=== PATIENT | male | born 1970 | race Caucasian/White ===

== ENCOUNTER → 2017-03-20 | Outpatient (CLI) | payer OTHER ==
[2017-03-20 09:53] LABS: MEAN CORPUSCULAR HGB CONC 34.5 g/dl (32.0-36.5); RED CELL DISTRIBUTION WIDTH 12.3 % (11.5-14.5); WHITE BLOOD COUNT 6.4 K/mm3 (4.0-10.0)
[2017-03-20 10:21] LABS: ALBUMIN 4.4 GM/DL (3.2-5.2); ALBUMIN/GLOBULIN RATIO 1.57 (1.00-1.93); ALKALINE PHOSPHATASE 110 U/L (45-117); ALT/SGPT 56 U/L (12-78); ANION GAP 7 MEQ/L (8-16); AST/SGOT 13 U/L (15-37); BILIRUBIN,TOTAL 0.5 MG/DL (0.2-1.0); BLOOD UREA NITROGEN 12 MG/DL (7-18); CALCIUM LEVEL 8.8 MG/DL (8.5-10.1); CARBON DIOXIDE LEVEL 29 MEQ/L (21-32); CHLORIDE LEVEL 105 MEQ/L (98-107); CHOLESTEROL LEVEL 219 MG/DL (<200); CREATININE FOR GFR 0.94 MG/DL (0.70-1.30); GLOMERULAR FILTRATION RATE > 60.0 (>60); GLUCOSE, FASTING 102 MG/DL (70-105); POTASSIUM SERUM 4.5 MEQ/L (3.5-5.1); SODIUM LEVEL 141 MEQ/L (136-145); TOTAL PROTEIN 7.2 GM/DL (6.4-8.2); TRIGLYCERIDES LEVEL 191 MG/DL (<150)
--- NOTE | 2017-03-20 19:04 | ECGEPIP ---
Stationary ECG Study [facility] Test Date: 2017-03-20 Pat Name: LISA ONEILL Department: Room: - Gender: M Associate Loan Officer: AYALA : 1970 Requested By: Aryan Donovan Order Number: [id number] Reading MD: Moni Justice Measurements Intervals [place] Rate: 60 P: 49 CA: 175 QRS: 22 QRSD: 101 T: 19 QT: 386 QTc: 386 Interpretive Statements SINUS RHYTHM NO CHANGE SINCE 07/17/14 Electronically Signed On 03-20-2017 19:04:20 EDT by Moni Justice
--- NOTE | 2017-03-20 19:28 | REP ---
Chest x-ray: Two views: History: Hypertension. Comparison chest x-ray: 07/17/2014. Findings: The lungs are symmetrically aerated and clear. Pleural angles are sharp. Heart size is normal. Pulmonary vasculature is not increased. There are degenerative changes with discogenic spurring along the right lateral margin of the thoracic spine as before. Impression: No active disease. Signed by Thony Morrow MD 03/21/2017 08:06 A
== END ==
LOC: M LAB 09:16
PROVIDERS: ATTEND Family Medicine
DX: R53.83 Other fatigue (principal); I10 Essential (primary) hypertension

== ENCOUNTER → 2017-06-01 | Outpatient (CLI) | payer OTHER | LOC: M LAB 09:09 | PROVIDERS: ATTEND Family Medicine | DX: I10 Essential (primary) hypertension (principal) ==

== ENCOUNTER → 2018-06-21 | Outpatient (CLI) | payer OTHER ==
[2018-06-21 09:29] LABS: HEMATOCRIT 44.1 % (42.0-52.0); HEMOGLOBIN 14.7 g/dl (13.5-17.5); MEAN CORPUSCULAR HEMOGLOBIN 29.3 pg (27.0-33.0); MEAN CORPUSCULAR HGB CONC 33.3 g/dl (32.0-36.5); MEAN CORPUSCULAR VOLUME 87.8 fl (80.0-96.0); PLATELET COUNT, AUTOMATED 257 10^3/uL (150-450); RED BLOOD COUNT 5.02 10^6/uL (4.30-6.10); RED CELL DISTRIBUTION WIDTH 12.2 % (11.5-14.5); WHITE BLOOD COUNT 6.1 10^3/uL (4.0-10.0)
[2018-06-21 09:54] LABS: ESTIMATED AVERAGE GLUCOSE 114 MG/DL (60-110); HEMOGLOBIN A1c 5.6 %
[2018-06-21 10:09] LABS: ALBUMIN 4.4 GM/DL (3.2-5.2); ALBUMIN/GLOBULIN RATIO 1.42 (1.00-1.93); ALKALINE PHOSPHATASE 113 U/L (45-117); ALT/SGPT 48 U/L (12-78); ANION GAP 7 MEQ/L (8-16); AST/SGOT 16 U/L (7-37); BILIRUBIN,TOTAL 0.9 MG/DL (0.2-1.0); BLOOD UREA NITROGEN 11 MG/DL (7-18); CALCIUM LEVEL 8.9 MG/DL (8.5-10.1); CARBON DIOXIDE LEVEL 27 MEQ/L (21-32); CHLORIDE LEVEL 107 MEQ/L (98-107); CHOLESTEROL LEVEL 213 MG/DL (<200); CHOLESTEROL RISK RATIO 3.672 (<5); GLOMERULAR FILTRATION RATE > 60.0 (>60); GLUCOSE, FASTING 97 MG/DL (70-100); HDL CHOLESTEROL 58 MG/DL (>40); NON-HDL-C 155 MG/DL; POTASSIUM SERUM 4.5 MEQ/L (3.5-5.1); PROSTATIC SPECIFIC AG MONITOR 2.28 NG/ML (< 4.0); SODIUM LEVEL 141 MEQ/L (136-145); TOTAL PROTEIN 7.5 GM/DL (6.4-8.2); TRIGLYCERIDES LEVEL 180 MG/DL (<150)
[2018-06-21 10:56] LABS: TOTAL 25(OH) VITAMIN D 26.7 NG/ML (30.0-100.0)
[2018-06-21 10:57] LABS: TESTOSTERONE 297 NG/DL (241-827)
== END ==
LOC: M LAB 08:42
DX: I10 Essential (primary) hypertension (principal); R53.83 Other fatigue; E03.9 Hypothyroidism, unspecified
CPT/HCPCS: 71046

== ENCOUNTER → 2018-11-01 | Outpatient (REF) | payer OTHER | LOC: M SFHCLERA 10:18 | PROVIDERS: ATTEND Nurse Practitioner Family | DX: J02.9 Acute pharyngitis, unspecified (principal) ==

== ENCOUNTER → 2019-07-07 | Outpatient (CLI) | payer BC ==
--- NOTE | 2019-07-08 12:07 | REP ---
Left wrist four views : There is no fracture or dislocation. Mineralization and joint spaces are normal. There are no calcifications or foreign bodies. Impression: Negative left wrist . Electronically Signed by Patrice Dutta MD 07/07/2019 11:22 A
== END ==
LOC: M LRY 10:43
PROVIDERS: ATTEND Nurse Practitioner Family
DX: M25.532 Pain in left wrist (principal)

== ENCOUNTER → 2020-06-18 | Outpatient (CLI) | payer BC ==
[~2020-06-18] MED LIST: D31000TA2 PO; METO1TAB87; MULT1TAB7 PO; PRAV40TA2
[2020-07-17 01:18] LABS: HEMATOCRIT 42.9 % (42.0-52.0); HEMOGLOBIN 14.5 g/dl (13.5-17.5); MEAN CORPUSCULAR HEMOGLOBIN 30.1 pg (27.0-33.0); MEAN CORPUSCULAR HGB CONC 33.8 g/dl (32.0-36.5); PLATELET COUNT, AUTOMATED 242 10^3/uL (150-450); RED BLOOD COUNT 4.82 10^6/uL (4.30-6.10)
--- NOTE | 2020-08-05 10:59 | ECGEPIP ---
[facility] Test Date: 2020-06-18 Pat Name: LISA ONEILL Department: Room: - Gender: Male Practice Assistant: NICKIE : 1970 Requested By: Aryan Donovan Order Number: [id number] Reading MD: Jared Kim Measurements Intervals [place] Rate: 66 P: 50 DE: 173 QRS: 27 QRSD: 106 T: 14 QT: 387 QTc: 407 Interpretive Statements NORMAL SINUS RHYTHM NORMAL EKG PRIOR TRACING N/A SEE SCANNED DOWNTIME REPORT
--- NOTE | 2020-08-06 10:48 | REP ---
CHEST X-RAY: TWO VIEWS HISTORY: Unknown. Report is delayed due to a malware attack on this facility. FINDINGS: The lungs are symmetrically aerated and clear. Heart is not enlarged. Pulmonary vasculature is not increased. There are degenerative changes in the thoracic spine. No acute bony abnormality. IMPRESSION: No active disease. MTDD
[2020-08-30 10:00] LABS: BLOOD UREA NITROGEN 11 MG/DL (7-18); CREATININE FOR GFR 1.04 MG/DL (0.70-1.30); GLOMERULAR FILTRATION RATE > 60.0 (>56); GLUCOSE, FASTING 94 MG/DL (70-100)
[2020-08-30 10:01] LABS: ALBUMIN 4.6 GM/DL (3.2-5.2); ALT/SGPT 54 IU/L (0-32); BILIRUBIN,TOTAL 0.5 MG/DL (0.2-1.0); CALCIUM LEVEL 9.8 MG/DL (8.5-10.1); CARBON DIOXIDE LEVEL 24 mmol/L (20-29); CHLORIDE LEVEL 104 MEQ/L (98-107); CHOLESTEROL LEVEL 233 MG/DL (<200); CHOLESTEROL RISK RATIO 3.883 (<5); HDL CHOLESTEROL 60 MG/DL (>40); LDL CHOLESTEROL 122.8 MG/DL (<100); NON-HDL-C 173 MG/DL; POTASSIUM SERUM 4.2 MEQ/L (3.5-5.1); SODIUM LEVEL 140 MEQ/L (136-145); TOTAL PROTEIN 7.8 GM/DL (6.4-8.2); TRIGLYCERIDES LEVEL 251 MG/DL (<150)
[2020-08-30 10:02] LABS: PROSTATIC SPECIFIC AG MONITOR 1.87 NG/ML (< 4.00); TOTAL 25(OH) VITAMIN D 40.6 NG/ML (30.0-100.0)
== END ==
LOC: M LAB 09:30
PROVIDERS: ATTEND Family Medicine
DX: I10 Essential (primary) hypertension (principal); R53.83 Other fatigue

== ENCOUNTER → 2020-06-19 | Emergency (ER) | payer BC ==
[~2020-06-19] MED LIST changes: +BOOSTRIX/ADACEL VACCINE (DIPHTH/PERTUSS/ACELL/TETANUS) 0.5ML SYR As Ordered ONE; +BOOSTRIX/ADACEL VACCINE (DIPHTH/PERTUSS/ACELL/TETANUS) 0.5ML SYR ONE; +CEPHALEXIN 500 MG CAP As Ordered ONE; +CEPHALEXIN 500 MG CAP ONE; +predniSONE 20 MG TAB As Ordered ONE; +predniSONE 20 MG TAB ONE
== END | disposition home or self-care (01) ==
LOC: M ED 10:12
DX: S60.361A Insect bite (nonvenomous) of right thumb, initial encounter (principal); W57.XXXA Bitten or stung by nonvenomous insect and other nonvenomous arthropods, initial encounter; R22.31 Localized swelling, mass and lump, right upper limb; I10 Essential (primary) hypertension; E78.5 Hyperlipidemia, unspecified; Z79.899 Other long term (current) drug therapy

== ENCOUNTER 2020-07-31 08:19 | Emergency (ER) | payer BC ==
[~2020-07-31] VITALS: Ht 198.1 cm; Wt 68.4 kg
[2020-07-31] MEDS ORDERED: PRAV40TA2 (08:35)
[2020-07-31] MEDS ORDERED: METO1TAB87 (08:35)
[2020-07-31] MEDS ORDERED: MULT1TAB7 PO (08:35)
[2020-07-31] MEDS ORDERED: D31000TA2 PO (08:35)
--- NOTE | 2020-07-31 09:05 | REPVR ---
PROCEDURE INFORMATION: Exam: XR Right Ankle Exam date and time: 07/31/2020 8:42 AM Age: 49 years old Clinical indication: Other: Fell from ladder; Additional info: Fell off ladder TECHNIQUE: Imaging protocol: XR Right ankle. Views: 3 or more views. COMPARISON: No relevant prior studies available. FINDINGS: Bones/joints: No acute bony injury or malalignment in the right ankle. Soft tissues: Mild soft tissue swelling. No radiopaque foreign body. IMPRESSION: No acute bony injury or malalignment in the right ankle. Electronically signed by: Norberto Luna On 07/31/2020 09:05:03 AM
[2020-07-31 09:20] VITALS: BP 156/81
== END 2020-07-31 09:21 | disposition home or self-care (01) ==
LOC: M ED 08:19
DX: S93.401A Sprain of unspecified ligament of right ankle, initial encounter (principal); W11.XXXA Fall on and from ladder, initial encounter; Y92.018 Other place in single-family (private) house as the place of occurrence of the external cause; I10 Essential (primary) hypertension; E78.5 Hyperlipidemia, unspecified; Z79.899 Other long term (current) drug therapy; Z87.891 Personal history of nicotine dependence

== ENCOUNTER → 2021-01-17 | Outpatient (CLI) | payer BC ==
[~2021-01-17] MED LIST changes: -BOOSTRIX/ADACEL VACCINE (DIPHTH/PERTUSS/ACELL/TETANUS) 0.5ML SYR As Ordered ONE; -BOOSTRIX/ADACEL VACCINE (DIPHTH/PERTUSS/ACELL/TETANUS) 0.5ML SYR ONE; -CEPHALEXIN 500 MG CAP As Ordered ONE; -CEPHALEXIN 500 MG CAP ONE; -predniSONE 20 MG TAB As Ordered ONE; -predniSONE 20 MG TAB ONE
[2021-01-17 09:59] LABS: HEMATOCRIT 45.6 % (42.0-52.0); MEAN CORPUSCULAR HEMOGLOBIN 28.9 pg (27.0-33.0); MEAN CORPUSCULAR HGB CONC 32.9 g/dl (32.0-36.5); MEAN CORPUSCULAR VOLUME 87.9 fl (80.0-96.0); PLATELET COUNT, AUTOMATED 231 10^3/uL (150-450); RED BLOOD COUNT 5.19 10^6/uL (4.30-6.10)
[2021-01-17 10:20] LABS: HEMOGLOBIN A1c 5.1 %
[2021-01-17 10:41] LABS: ALBUMIN 4.5 GM/DL (3.2-5.2); ALT/SGPT 41 U/L (12-78); BILIRUBIN,TOTAL 0.6 MG/DL (0.2-1.0); BLOOD UREA NITROGEN 16 MG/DL (7-18); CALCIUM LEVEL 9.6 MG/DL (8.5-10.1); CARBON DIOXIDE LEVEL 28 MEQ/L (21-32); CHLORIDE LEVEL 108 MEQ/L (98-107); CHOLESTEROL LEVEL 241 MG/DL (<200); CHOLESTEROL RISK RATIO 3.887 (<5); CREATININE FOR GFR 0.92 MG/DL (0.70-1.30); GLOMERULAR FILTRATION RATE > 60.0 (>56); GLUCOSE, FASTING 104 MG/DL (70-100); HDL CHOLESTEROL 62 MG/DL (>40); LDL CHOLESTEROL 151 MG/DL (<100); NON-HDL-C 179 MG/DL; POTASSIUM SERUM 4.4 MEQ/L (3.5-5.1); PROSTATIC SPECIFIC AG MONITOR 2.06 NG/ML (< 4.00); SODIUM LEVEL 140 MEQ/L (136-145); TESTOSTERONE 297 NG/DL (241-827); TOTAL PROTEIN 7.2 GM/DL (6.4-8.2); TRIGLYCERIDES LEVEL 140 MG/DL (<150)
== END ==
LOC: M LAB 09:09
PROVIDERS: ATTEND Family Medicine
DX: I10 Essential (primary) hypertension (principal); R53.83 Other fatigue

== ENCOUNTER → 2021-09-03 | Outpatient (CLI) | payer BC ==
[2021-09-03 11:11] LABS: HEMATOCRIT 43.3 % (42.0-52.0); HEMOGLOBIN 14.5 g/dl (13.5-17.5); MEAN CORPUSCULAR HEMOGLOBIN 29.3 pg (27.0-33.0); MEAN CORPUSCULAR HGB CONC 33.5 g/dl (32.0-36.5); MEAN CORPUSCULAR VOLUME 87.5 fl (80.0-96.0); PLATELET COUNT, AUTOMATED 248 10^3/uL (150-450); RED BLOOD COUNT 4.95 10^6/uL (4.30-6.10)
[2021-09-03 11:39] LABS: ALT/SGPT 52 U/L (12-78); BILIRUBIN,TOTAL 0.8 MG/DL (0.2-1.0); BLOOD UREA NITROGEN 9 MG/DL (7-18); CARBON DIOXIDE LEVEL 29 MEQ/L (21-32); CHLORIDE LEVEL 107 MEQ/L (98-107); CHOLESTEROL LEVEL 197 MG/DL (<200); CHOLESTEROL RISK RATIO 3.862 (<5); CREATININE FOR GFR 0.96 MG/DL (0.70-1.30); GLOMERULAR FILTRATION RATE > 60.0 (>56); GLUCOSE, FASTING 94 MG/DL (70-100); HDL CHOLESTEROL 51 MG/DL (>40); LDL CHOLESTEROL 109 MG/DL (<100); NON-HDL-C 146 MG/DL; POTASSIUM SERUM 4.6 MEQ/L (3.5-5.1); PROSTATIC SPECIFIC AG MONITOR 2.39 NG/ML (< 4.00); SODIUM LEVEL 142 MEQ/L (136-145); THYROXINE (T4) 6.2 UG/DL (4.5-12.0); TOTAL PROTEIN 7.1 GM/DL (6.4-8.2); TRIGLYCERIDES LEVEL 186 MG/DL (<150)
[2021-09-05 10:01] LABS: TESTOSTERONE 295 NG/DL (241-827); TOTAL T3 95.2 NG/DL (60.0-181.0)
== END ==
LOC: M LAB 09:10
PROVIDERS: ATTEND Family Medicine
DX: I10 Essential (primary) hypertension (principal); R53.83 Other fatigue

== ENCOUNTER → 2022-04-24 | Outpatient (CLI) | payer BC ==
[~2022-04-24] MED LIST changes: -D31000TA2 PO; +VITA100093 PO
[2022-04-24 11:54] LABS: HEMATOCRIT 44.1 % (42.0-52.0); HEMOGLOBIN 14.9 g/dl (13.5-17.5); MEAN CORPUSCULAR HEMOGLOBIN 29.9 pg (27.0-33.0); MEAN CORPUSCULAR HGB CONC 33.8 g/dl (32.0-36.5); MEAN CORPUSCULAR VOLUME 88.4 fl (80.0-96.0); PLATELET COUNT, AUTOMATED 226 10^3/uL (150-450); RED BLOOD COUNT 4.99 10^6/uL (4.30-6.10); WHITE BLOOD COUNT 5.9 10^3/uL (4.0-10.0)
[2022-04-24 12:43] LABS: ALBUMIN 4.4 GM/DL (3.2-5.2); ALT/SGPT 49 U/L (12-78); BILIRUBIN,TOTAL 0.9 MG/DL (0.2-1.0); BLOOD UREA NITROGEN 17 MG/DL (7-18); CALCIUM LEVEL 10.3 MG/DL (8.5-10.1); CARBON DIOXIDE LEVEL 26 MEQ/L (21-32); CHLORIDE LEVEL 108 MEQ/L (98-107); CHOLESTEROL LEVEL 218 MG/DL (<200); CHOLESTEROL RISK RATIO 3.892 (<5); CREATININE FOR GFR 0.99 MG/DL (0.70-1.30); GLOMERULAR FILTRATION RATE > 60.0 (>56); GLUCOSE, FASTING 98 MG/DL (70-100); HDL CHOLESTEROL 56 MG/DL (>40); LDL CHOLESTEROL 130 MG/DL (<100); NON-HDL-C 162 MG/DL; POTASSIUM SERUM 4.8 MEQ/L (3.5-5.1); PROSTATIC SPECIFIC AG MONITOR 2.65 NG/ML (< 4.00); SODIUM LEVEL 140 MEQ/L (136-145); TESTOSTERONE 271 NG/DL (241-827); TOTAL PROTEIN 7.4 GM/DL (6.4-8.2); TRIGLYCERIDES LEVEL 162 MG/DL (<150)
[2022-04-24 15:53] LABS: HEMOGLOBIN A1c 5.3 %
== END ==
LOC: M LAB 11:10
PROVIDERS: ATTEND Family Medicine
DX: I10 Essential (primary) hypertension (principal); R53.83 Other fatigue; E03.9 Hypothyroidism, unspecified

== ENCOUNTER → 2022-11-03 | Outpatient (CLI) | payer BC ==
[2022-11-03 09:14] LABS: HEMATOCRIT 45.3 % (42.0-52.0); MEAN CORPUSCULAR HEMOGLOBIN 28.7 pg (27.0-33.0); MEAN CORPUSCULAR HGB CONC 33.1 g/dl (32.0-36.5); MEAN CORPUSCULAR VOLUME 86.8 fl (80.0-96.0); PLATELET COUNT, AUTOMATED 234 10^3/uL (150-450); RED BLOOD COUNT 5.22 10^6/uL (4.30-6.10); WHITE BLOOD COUNT 6.5 10^3/uL (4.0-10.0)
[2022-11-03 09:43] LABS: ALBUMIN 4.2 G/DL (3.2-5.2); ALKALINE PHOSPHATASE 93 U/L (46-116); ALT/SGPT 37 U/L (7.0-40); AST/SGOT 16 U/L (<34); BILIRUBIN,TOTAL 0.8 MG/DL (0.3-1.2); BLOOD UREA NITROGEN 12 MG/DL (9-23); CARBON DIOXIDE LEVEL 28 MMOL/L (20-31); CHLORIDE LEVEL 103 MMOL/L (98-107); CHOLESTEROL LEVEL 195 MG/DL (<200); CHOLESTEROL RISK RATIO 3.19 (<5); CREATININE FOR GFR 0.93 MG/DL (0.70-1.30); GLOMERULAR FILTRATION RATE > 60.0 (>56); GLUCOSE, FASTING 96 MG/DL (60-100); HDL CHOLESTEROL 61.1 MG/DL (>40); LDL CHOLESTEROL 92.9 MG/DL (<100); NON-HDL-C 134 MG/DL; POTASSIUM SERUM 4.4 MMOL/L (3.5-5.1); PROSTATIC SPECIFIC AG MONITOR 2.14 NG/ML (< 4.00); SODIUM LEVEL 140 MMOL/L (136-145); TRIGLYCERIDES LEVEL 205 MG/DL (<150)
[2022-11-03 09:45] LABS: THYROID STIMULATING HORMONE 2.612 uIU/ML (0.55-4.78)
[2022-11-03 09:46] LABS: TESTOSTERONE 337 NG/DL (241-827); TOTAL 25(OH) VITAMIN D 42.1 NG/ML (20.0-100.0)
== END ==
LOC: M LAB 07:59
PROVIDERS: ATTEND Family Medicine
DX: I10 Essential (primary) hypertension (principal); R53.83 Other fatigue; E03.9 Hypothyroidism, unspecified

== ENCOUNTER → 2022-12-14 | Outpatient (CLI) | payer BC ==
[2022-12-14 09:46] LABS: HEMATOCRIT 45.4 % (42.0-52.0); HEMOGLOBIN 15.2 g/dl (13.5-17.5); MEAN CORPUSCULAR HEMOGLOBIN 29.1 pg (27.0-33.0); MEAN CORPUSCULAR HGB CONC 33.5 g/dl (32.0-36.5); PLATELET COUNT, AUTOMATED 235 10^3/uL (150-450); RED BLOOD COUNT 5.22 10^6/uL (4.30-6.10); WHITE BLOOD COUNT 7.2 10^3/uL (4.0-10.0)
[2022-12-14 09:57] LABS: INR 0.88; PROTHROMBIN TIME 12.1 SECONDS (12.5-14.5)
[2022-12-14 10:21] LABS: ALBUMIN 4.6 G/DL (3.2-5.2); ALKALINE PHOSPHATASE 105 U/L (46-116); ALT/SGPT 46 U/L (7.0-40); AST/SGOT 17 U/L (<34); BILIRUBIN,TOTAL 0.9 MG/DL (0.3-1.2); BLOOD UREA NITROGEN 12 MG/DL (9-23); CALCIUM LEVEL 9.7 MG/DL (8.5-10.1); CARBON DIOXIDE LEVEL 27 MMOL/L (20-31); CHLORIDE LEVEL 104 MMOL/L (98-107); CHOLESTEROL LEVEL 214 MG/DL (<200); CHOLESTEROL RISK RATIO 3.41 (<5); CREATININE FOR GFR 0.88 MG/DL (0.70-1.30); GLOMERULAR FILTRATION RATE > 60.0 (>56); GLUCOSE, FASTING 111 MG/DL (60-100); HDL CHOLESTEROL 62.6 MG/DL (>40); LDL CHOLESTEROL 118.8 MG/DL (<100); NON-HDL-C 151 MG/DL; POTASSIUM SERUM 4.8 MMOL/L (3.5-5.1); SODIUM LEVEL 139 MMOL/L (136-145); TOTAL PROTEIN 7.8 G/DL (5.7-8.2); TRIGLYCERIDES LEVEL 163 MG/DL (<150)
[2022-12-14 10:49] LABS: PROSTATIC SPECIFIC AG MONITOR 2.35 NG/ML (< 4.00)
[2022-12-14 10:52] LABS: THYROID STIMULATING HORMONE 2.176 uIU/ML (0.55-4.78)
== END ==
LOC: M RAD 08:35
PROVIDERS: ATTEND Family Medicine
DX: Z01.818 Encounter for other preprocedural examination (principal)

== ENCOUNTER → 2022-12-24 | Outpatient (CLI) | payer BC ==
[~2022-12-24] MED LIST changes: -METO1TAB87; +METO1TAB87 PO; -PRAV40TA2; +PRAV40TA2 PO
== END ==
LOC: M LABSMTC 09:39
PROVIDERS: ATTEND Anesthesiology
DX: Z01.812 Encounter for preprocedural laboratory examination (principal); Z11.52 Encounter for screening for COVID-19

== ENCOUNTER 2022-12-25 06:44 | Day surgery (SDC) | payer BC ==
[~2022-12-25] VITALS: Ht 167.6 cm; Wt 88.5 kg
[~2022-12-25 06:44] MED LIST changes: +BSS IRRIG/VANCO(10MG)/TOBRA(5MG)/EPINEPH(1:1000-0.5CC)500ML BAG-ORONLY IR ONE; +CEFUROXIME 1MG/0.1ML INTRACAMERAL INJ As Ordered ONE; +CYCLOPENTOLATE 1% OPHTH SOLN 2ML BTL OS SCH; +LIDOCAINE 1% SDV 5ML VIAL As Ordered ONE; +LIDOCAINE 3.5 % 1ML OPHTH TOPICAL GEL OU ONE; +OFLOXACIN 0.3 % (OCUFLOX) OPTH SOL 5ML OS ONE; +PHENYLEPHRINE 10% OPHTH SOL 5ML OS PRN; +PHENYLEPHRINE 2.5% OPHTH SOL 2ML OS SCH; +TROPICAMIDE 1% OPHTH SOLN 15ML OS SCH
[2022-12-25] MEDS ORDERED: fentaNYL 100 MCG/2 ML INJECTION As Ordered ONE (07:17)
[2022-12-25] MEDS ORDERED: MIDAZOLAM INJ 2MG/2ML VIAL As Ordered ONE (07:18)
[2022-12-25] MEDS ORDERED: LIDOCAINE 1% SDV 5ML VIAL As Ordered ONE (07:25)
[2022-12-25 08:13] VITALS: BP 132/77
== END 2022-12-25 08:35 | disposition home or self-care (01) ==
LOC: M SDC 06:44
PROVIDERS: ATTEND Ophthalmology
DX: H25.12 Age-related nuclear cataract, left eye (principal); I10 Essential (primary) hypertension; E78.5 Hyperlipidemia, unspecified; Z79.899 Other long term (current) drug therapy
CPT/HCPCS: 66984; J0697; J2250; J3010; V2632

== ENCOUNTER → 2023-01-30 | Outpatient (CLI) | payer BC ==
[~2023-01-30] MED LIST changes: -BSS IRRIG/VANCO(10MG)/TOBRA(5MG)/EPINEPH(1:1000-0.5CC)500ML BAG-ORONLY IR ONE; -CEFUROXIME 1MG/0.1ML INTRACAMERAL INJ As Ordered ONE; -CYCLOPENTOLATE 1% OPHTH SOLN 2ML BTL OS SCH; -LIDOCAINE 1% SDV 5ML VIAL As Ordered ONE; -LIDOCAINE 3.5 % 1ML OPHTH TOPICAL GEL OU ONE; -OFLOXACIN 0.3 % (OCUFLOX) OPTH SOL 5ML OS ONE; -PHENYLEPHRINE 10% OPHTH SOL 5ML OS PRN; -PHENYLEPHRINE 2.5% OPHTH SOL 2ML OS SCH; -TROPICAMIDE 1% OPHTH SOLN 15ML OS SCH
[2023-01-30 10:35] LABS: HEMATOCRIT 43.4 % (42.0-52.0); MEAN CORPUSCULAR HEMOGLOBIN 29.8 pg (27.0-33.0); MEAN CORPUSCULAR HGB CONC 34.6 g/dl (32.0-36.5); MEAN CORPUSCULAR VOLUME 86.3 fl (80.0-96.0); PLATELET COUNT, AUTOMATED 228 10^3/uL (150-450); RED BLOOD COUNT 5.03 10^6/uL (4.30-6.10); WHITE BLOOD COUNT 7.2 10^3/uL (4.0-10.0)
[2023-01-30 10:46] LABS: INR 0.85; PROTHROMBIN TIME 11.8 SECONDS (12.5-14.5)
[2023-01-30 11:02] LABS: ALBUMIN 4.4 G/DL (3.2-5.2); ALKALINE PHOSPHATASE 103 U/L (46-116); ALT/SGPT 42 U/L (7.0-40); AST/SGOT 18 U/L (<34); BILIRUBIN,TOTAL 1.2 MG/DL (0.3-1.2); BLOOD UREA NITROGEN 14 MG/DL (9-23); CARBON DIOXIDE LEVEL 26 MMOL/L (20-31); CHLORIDE LEVEL 105 MMOL/L (98-107); CHOLESTEROL LEVEL 221 MG/DL (<200); CHOLESTEROL RISK RATIO 3.72 (<5); CREATININE FOR GFR 0.85 MG/DL (0.70-1.30); GLOMERULAR FILTRATION RATE > 60.0 (>56); GLUCOSE, FASTING 95 MG/DL (60-100); HDL CHOLESTEROL 59.3 MG/DL (>40); LDL CHOLESTEROL 107.5 MG/DL (<100); NON-HDL-C 161.7 MG/DL; POTASSIUM SERUM 4.2 MMOL/L (3.5-5.1); SODIUM LEVEL 136 MMOL/L (136-145); THYROID STIMULATING HORMONE 2.609 uIU/ML (0.55-4.78); TOTAL PROTEIN 7.2 G/DL (5.7-8.2); TRIGLYCERIDES LEVEL 271 MG/DL (<150)
[2023-01-30 11:06] LABS: HEMOGLOBIN A1c 5.1 % (4.0-6.0)
== END ==
LOC: M LAB 09:15 → M RAD 09:15
PROVIDERS: ATTEND Family Medicine
DX: Z01.818 Encounter for other preprocedural examination (principal); I10 Essential (primary) hypertension

== ENCOUNTER 2023-02-14 08:09 | Day surgery (SDC) | payer BC ==
[~2023-02-14] VITALS: Ht 167.6 cm; Wt 87.5 kg
[~2023-02-14 08:09] MED LIST changes: +NS 1,000 ML IV ONE
[2023-02-14] MEDS ORDERED: propofoL 200 MG/20 ML VIAL As Ordered ONE (09:26)
[2023-02-14] MEDS ORDERED: LIDOCAINE 2% 100MG/5ML SDV (FOR ANES.) As Ordered ONE (09:27)
[2023-02-14 09:45] VITALS: BP 118/78
== END 2023-02-14 09:53 | disposition home or self-care (01) ==
LOC: M OPP 08:09
PROVIDERS: ATTEND Internal Medicine Gastroenterology
DX: Z12.11 Encounter for screening for malignant neoplasm of colon (principal); D12.2 Benign neoplasm of ascending colon; K64.0 First degree hemorrhoids; K57.30 Diverticulosis of large intestine without perforation or abscess without bleeding; I10 Essential (primary) hypertension; E78.5 Hyperlipidemia, unspecified; Z79.899 Other long term (current) drug therapy

== ENCOUNTER 2023-02-26 08:34 | Day surgery (SDC) | payer BC ==
[~2023-02-26] VITALS: Ht 167.6 cm; Wt 86.2 kg
[~2023-02-26 08:34] MED LIST changes: +BSS IRRIG/VANCO(10MG)/TOBRA(5MG)/EPINEPH(1:1000-0.5CC)500ML BAG-ORONLY IR ONE; +CEFUROXIME 1MG/0.1ML INTRACAMERAL INJ As Ordered ONE; +CYCLOPENTOLATE 1% OPHTH SOLN 2ML BTL OD SCH; +LIDOCAINE 1% SDV 5ML VIAL As Ordered ONE; +LIDOCAINE 3.5 % 1ML OPHTH TOPICAL GEL OU ONE; +MIDAZOLAM 5MG/ML 1ML VIAL As Ordered ONE; -NS 1,000 ML IV ONE; +OFLOXACIN 0.3 % (OCUFLOX) OPTH SOL 5ML OD ONE; +PHENYLEPHRINE 10% OPHTH SOL 5ML OD PRN; +PHENYLEPHRINE 2.5% OPHTH SOL 2ML OD SCH; +TROPICAMIDE 1% OPHTH SOLN 15ML OD SCH
[2023-02-26] MEDS ORDERED: MIDAZOLAM INJ 2MG/2ML VIAL As Ordered ONE (10:05)
[2023-02-26] MEDS ORDERED: LABETALOL 100MG/20ML VIAL As Ordered ONE (10:08)
[2023-02-26 10:20] VITALS: BP 176/91
== END 2023-02-26 10:35 | disposition home or self-care (01) ==
LOC: M SDC 08:34
PROVIDERS: ATTEND Ophthalmology
DX: H25.11 Age-related nuclear cataract, right eye (principal); I10 Essential (primary) hypertension; E78.5 Hyperlipidemia, unspecified; Z79.899 Other long term (current) drug therapy
CPT/HCPCS: 66984; 92015; J0697; J2250; V2632

== ENCOUNTER → 2023-09-27 | Outpatient (CLI) | payer BC ==
[~2023-09-27] MED LIST changes: -BSS IRRIG/VANCO(10MG)/TOBRA(5MG)/EPINEPH(1:1000-0.5CC)500ML BAG-ORONLY IR ONE; -CEFUROXIME 1MG/0.1ML INTRACAMERAL INJ As Ordered ONE; -CYCLOPENTOLATE 1% OPHTH SOLN 2ML BTL OD SCH; -LIDOCAINE 1% SDV 5ML VIAL As Ordered ONE; -LIDOCAINE 3.5 % 1ML OPHTH TOPICAL GEL OU ONE; -MIDAZOLAM 5MG/ML 1ML VIAL As Ordered ONE; -OFLOXACIN 0.3 % (OCUFLOX) OPTH SOL 5ML OD ONE; -PHENYLEPHRINE 10% OPHTH SOL 5ML OD PRN; -PHENYLEPHRINE 2.5% OPHTH SOL 2ML OD SCH; -TROPICAMIDE 1% OPHTH SOLN 15ML OD SCH
[2023-09-27 10:11] LABS: HEMATOCRIT 42.1 % (42.0-52.0); HEMOGLOBIN 14.5 g/dl (13.5-17.5); MEAN CORPUSCULAR HEMOGLOBIN 30.1 pg (27.0-33.0); MEAN CORPUSCULAR HGB CONC 34.4 g/dl (32.0-36.5); MEAN CORPUSCULAR VOLUME 87.3 fl (80.0-96.0); PLATELET COUNT, AUTOMATED 215 10^3/uL (150-450); RED BLOOD COUNT 4.82 10^6/uL (4.30-6.10); WHITE BLOOD COUNT 6.4 10^3/uL (4.0-10.0)
[2023-09-27 10:39] LABS: PROSTATIC SPECIFIC AG MONITOR 1.72 NG/ML (< 4.00)
[2023-09-27 10:43] LABS: ALBUMIN 4.1 G/DL (3.2-5.2); ALKALINE PHOSPHATASE 98 U/L (46-116); ALT/SGPT 56 U/L (7.0-40); AST/SGOT 15 U/L (<34); BILIRUBIN,TOTAL 0.7 MG/DL (0.3-1.2); BLOOD UREA NITROGEN 16 MG/DL (9-23); CALCIUM LEVEL 9.2 MG/DL (8.5-10.1); CARBON DIOXIDE LEVEL 28 MMOL/L (20-31); CHLORIDE LEVEL 107 MMOL/L (98-107); CHOLESTEROL LEVEL 229 MG/DL (<200); CHOLESTEROL RISK RATIO 4.42 (<5); CREATININE FOR GFR 0.88 MG/DL (0.70-1.30); GLOMERULAR FILTRATION RATE > 60.0 (>56); GLUCOSE, FASTING 99 MG/DL (60-100); HDL CHOLESTEROL 51.8 MG/DL (>40); LDL CHOLESTEROL 133.4 MG/DL (<100); NON-HDL-C 177.2 MG/DL; POTASSIUM SERUM 4.5 MMOL/L (3.5-5.1); SODIUM LEVEL 142 MMOL/L (136-145); TOTAL PROTEIN 6.8 G/DL (5.7-8.2); TRIGLYCERIDES LEVEL 219 MG/DL (<150)
[2023-09-27 10:44] LABS: TESTOSTERONE 233 NG/DL (241-827)
== END ==
LOC: M LAB 08:40
PROVIDERS: ATTEND Family Medicine
DX: I10 Essential (primary) hypertension (principal); E03.9 Hypothyroidism, unspecified; R53.83 Other fatigue

== ENCOUNTER → 2024-08-06 | Outpatient (CLI) | payer BC ==
[2024-08-06 09:30] LABS: HEMATOCRIT 44.7 % (42.0-52.0); HEMOGLOBIN 15.4 g/dl (13.5-17.5); MEAN CORPUSCULAR HGB CONC 34.5 g/dl (32.0-36.5); MEAN CORPUSCULAR VOLUME 87.1 fl (80.0-96.0); PLATELET COUNT, AUTOMATED 204 10^3/uL (150-450); RED BLOOD COUNT 5.13 10^6/uL (4.30-6.10); WHITE BLOOD COUNT 5.8 10^3/uL (4.0-10.0)
[2024-08-06 09:47] LABS: HEMOGLOBIN A1c 5.1 % (4.0-6.0)
[2024-08-06 10:08] LABS: ALBUMIN 4.4 G/DL (3.2-5.2); ALKALINE PHOSPHATASE 105 U/L (46-116); ALT/SGPT 46 U/L (7.0-40); AST/SGOT 10 U/L (<34); BILIRUBIN,TOTAL 0.9 MG/DL (0.3-1.2); BLOOD UREA NITROGEN 11 MG/DL (9-23); CALCIUM LEVEL 9.8 MG/DL (8.5-10.1); CARBON DIOXIDE LEVEL 30 MMOL/L (20-31); CHLORIDE LEVEL 106 MMOL/L (98-107); CHOLESTEROL LEVEL 235 MG/DL (<200); CHOLESTEROL RISK RATIO 4.39 (<5); CREATININE FOR GFR 0.88 MG/DL (0.70-1.30); GLOMERULAR FILTRATION RATE > 60.0 (>56); GLUCOSE, FASTING 107 MG/DL (60-100); HDL CHOLESTEROL 53.5 MG/DL (>40); LDL CHOLESTEROL 134.9 MG/DL (<100); NON-HDL-C 181.5 MG/DL; POTASSIUM SERUM 4.7 MMOL/L (3.5-5.1); PROSTATIC SPECIFIC AG MONITOR 1.96 NG/ML (< 4.00); SODIUM LEVEL 138 MMOL/L (136-145); TOTAL PROTEIN 7.2 G/DL (5.7-8.2); TRIGLYCERIDES LEVEL 233 MG/DL (<150)
[2024-08-06 10:10] LABS: TESTOSTERONE 237 NG/DL (241-827); THYROID STIMULATING HORMONE 2.641 uIU/ML (0.55-4.78)
== END ==
LOC: M LAB 08:38
PROVIDERS: ATTEND Family Medicine
DX: I10 Essential (primary) hypertension (principal); R53.83 Other fatigue

== ENCOUNTER → 2025-10-27 | Outpatient (REF) | payer BC ==
[~2025-10-27] MED LIST changes: -PRAV40TA2 PO; +PRAV40TA85 PO
[2025-10-27 17:41] LABS: BASO # 0.1 10^3/uL (0.0-0.2); BASO % 0.9 % (0.0-1.0); EOS # 0.2 10^3/uL (0.0-0.5); EOS % 3.3 % (0.0-3.0); LYMPH # 1.5 10^3/uL (1.5-5.0); LYMPH % 23.6 % (24.0-44.0); MONO # 0.5 10^3/uL (0.0-0.8); MONO % 7.5 % (2.0-8.0); NEUTROPHILS # 4.1 10^3/uL (1.5-8.5); NEUTROPHILS % 63.9 % (36.0-66.0); PLATELET COUNT, AUTOMATED 240 10^3/uL (150-450)
[2025-10-27 17:46] LABS: ALT/SGPT 57 U/L (7.0-40); AST/SGOT 21 U/L (<34); CALCIUM LEVEL 9.6 MG/DL (8.5-10.1); CARBON DIOXIDE LEVEL 27 MMOL/L (20-31); CHLORIDE LEVEL 101 MMOL/L (98-107); CHOLESTEROL LEVEL 211 MG/DL (<200); CHOLESTEROL RISK RATIO 3.66 (<5); CREATININE FOR GFR 0.79 MG/DL (0.70-1.30); GLOMERULAR FILTRATION RATE > 90.0 (>56); LDL CHOLESTEROL 104.3 MG/DL (<100); NON-HDL-C 153.5 MG/DL; POTASSIUM SERUM 4.0 MMOL/L (3.5-5.1); PSA SCREENING 2.03 NG/ML (< 4.00); SODIUM LEVEL 139 MMOL/L (136-145); TRIGLYCERIDES LEVEL 246 MG/DL (<150)
[2025-10-27 17:48] LABS: TOTAL 25(OH) VITAMIN D 36.8 NG/ML (20.0-100.0)
[2025-10-27 17:58] LABS: ESTIMATED AVERAGE GLUCOSE 103.0 MG/DL (60-110)
[2025-10-27 18:09] LABS: CREATININE, URINE 67.6 MG/DL; MALB URINE SIEMENS < 3.0 MG/L
== END ==
LOC: M SFHCLERA 11:19
PROVIDERS: ATTEND Internal Medicine
DX: Z00.01 Encounter for general adult medical examination with abnormal findings (principal); I10 Essential (primary) hypertension
CPT/HCPCS: 80053; 80061; 82043; 82306; 83036; 85025; G0103